=== PATIENT | female | born 1985 | race Native Hawaiian/Other Pacific Islander ===

== ENCOUNTER 2018-04-03 07:33 | Day surgery (SDC) | payer BC ==
[2018-04-01 15:03] VITALS: BMI 25.3
[2018-04-03 08:06] VITALS: O2SAT 100
[2018-04-03] MEDS ORDERED: Propofol 10 mg/ml Inj (20 ML) ONE (09:37)
[2018-04-03] MEDS ORDERED: Midazolam 2 MG/2 ML VIAL ONE (09:37)
[2018-04-03] MEDS ORDERED: Lactated Ringer's 500 ML IV ONE (10:42)
[2018-04-03 11:18] VITALS: TEMP 98.6
[2018-04-03 12:11] VITALS: BP 125/77; PULSE 70; RESP 13
== END 2018-04-03 12:05 | disposition home or self-care (01) ==
LOC: C.ENDO 07:33
PROVIDERS: ATTEND Internal Medicine Gastroenterology
DX: K52.9 Noninfective gastroenteritis and colitis, unspecified (principal); K64.8 Other hemorrhoids
CPT/HCPCS: 45380; 84703; 88305; J2001; J2250; J2704; J3010; J7120